=== PATIENT | male | born 1990 | race Hispanic/Latino ===

== ENCOUNTER 2022-01-10 20:00 | Emergency (ER) | payer OTHER ==
[~2022-01-10] VITALS: Ht 162.6 cm; Wt 68.5 kg
[2022-01-10] MEDS ORDERED: LIDOCAINE HCL 1% 10 ML VIAL ONE (20:15)
[2022-01-10] MEDS ORDERED: TETANUS/DIPHTHERIA TOXOID [ADULT] 0.5 ML VIAL IM ONE (20:25)
[2022-01-10] MEDS ORDERED: DIPH,PERTUSS(ACELL),TET VAC/PF 0.5 ML VIAL IM ONE (20:30)
[2022-01-10] MEDS ORDERED: DOXY-336 PO (20:32)
[2022-01-10 20:40] VITALS: BP 132/78
== END 2022-01-10 20:41 | disposition home or self-care (01) ==
LOC: EDH 20:00
DX: S60.453A Superficial foreign body of left middle finger, initial encounter (principal); Z90.49 Acquired absence of other specified parts of digestive tract; W45.8XXA Other foreign body or object entering through skin, initial encounter; Y93.89 Activity, other specified; Y92.89 Other specified places as the place of occurrence of the external cause; Y99.8 Other external cause status
CPT/HCPCS: 99284; 90714; 90471; J3490